=== PATIENT | male | born 1975 | race African-American/Black ===

== ENCOUNTER 2024-08-31 02:53 | Emergency (ER) | payer OTHER ==
[2024-08-31] MEDS ORDERED: Bacitracin 1 PK ONE (03:18)
[2024-08-31] MEDS ORDERED: Lidocaine 1% w/Epinephrine 1:100K 20 ML VIAL ONE (03:18)
[2024-08-31] MEDS ORDERED: Boostrix 0.5 ML (Tdap) VIAL (>/=7 yrs of age) ONE (03:19)
[2024-08-31 03:22] LABS: #Basophils 0.1 thou/uL (0.0-0.2); #Lymphocytes 1.5 thou/uL (1.20-3.40); #Monocytes 0.5 thou/uL (0.11-0.59); #Neutrophils 3.5 thou/uL (1.40-6.50); %Basophils 0.9 % (0.0-1.0); %Eosinophils 0.7 % (0.0-10.0); %Lymphocytes 27.3 % (21.0-51.0); %Monocytes 8.2 % (0.0-10.0); %Neutrophils 62.9 % (42.0-75.0); Hematocrit 40.7 % (42.0-52.0); Hemoglobin 13.4 g/dL (14.0-18.0); Mean Corpuscular HGB CONC 32.9 g/dL (32.0-36.0); Mean Corpuscular Hemoglobin 29.9 pg (27.0-31.0); Mean Corpuscular Volume 90.9 fl (78.0-98.0); Mean Platelet Volume 5.5 fL (7.4-10.4); Platelet Count 242 10x3/uL (130-400); RBC Distribution Width 12.5 % (11.5-14.5); Red Blood Cell (RBC) Count 4.48 mill/uL (4.70-6.10); White Blood Cell (WBC) Count 5.6 10x3/uL (4.8-10.8)
[2024-08-31 03:41] LABS: Troponin I Less than 0.010 ng/mL (< 0.028)
[2024-08-31 03:42] LABS: ALT (SGPT) 12 U/L (8-55); AST (SGOT) 20 U/L (5-34); Albumin 3.6 g/dL (3.5-5.0); Alkaline Phosphatase 29 U/L (40-110); Anion Gap 13 mmol/L (10-20); BUN (Urea Nitrogen) 17 mg/dL (8.9-20.6); Bilirubin, Total 0.4 mg/dL (0.2-1.2); Calc. Creatinine Clearance 0 mL/min (70-130); Calcium 8.8 mg/dL (7.8-10.44); Carbon Dioxide 24 mmol/L (22-29); Chloride 106 mmol/L (98-107); Estimated GFR 66; Globulin 3.5 g/dL (2.4-3.5); Glucose 101 mg/dL (70-105); Protein, Total 7.1 g/dL (6.0-8.3); Sodium 139 mmol/L (136-145)
[2024-08-31] MEDS ORDERED: Enoxaparin 30 MG (0.3 mL) SYRINGE ONE (05:23)
[2024-08-31] MEDS ORDERED: Enoxaparin 60 MG (0.6 mL) SYRINGE ONE (05:23)
[2024-08-31] MEDS ORDERED: Sodium Chloride 0.9% 1,000 ML ONE (05:30)
[2024-08-31] MEDS ORDERED: Iopamidol 370 76% 100 ML VIAL ONE (09:00)
== END 2024-08-31 21:57 | disposition short-term general hospital (02) ==
LOC: NAV ERS 02:53
DX: R55 Syncope and collapse (principal); S01.412A Laceration without foreign body of left cheek and temporomandibular area, initial encounter; S90.31XA Contusion of right foot, initial encounter; I26.99 Other pulmonary embolism without acute cor pulmonale; X58.XXXA Exposure to other specified factors, initial encounter; Z23 Encounter for immunization
CPT/HCPCS: 12013; 71045; 71275; 80053; 84484; 85025; 85379; 90471; 90715; 93005; 96360; 96361; 96372; J1650; J7030; Q9967